=== PATIENT | male | born 1975 ===

== ENCOUNTER 2017-01-25 08:31 | Day surgery (SDC) | payer OTHER ==
--- NOTE | ~2017-01-25 | OP ---
Record Of Operation [facility] [address] [place]. [address] NAME: LA VILLEDA : 73 STATUS : [facility]#: [id number] AGE: 41 ADM/REG DATE : 01/25/17 MR#: [id number] REPORT SERV DATE: 01/28/17 DICTATED BY: TAY RUIZ DATE: 01/25/17 REPORT STATUS : Draft TRANSCRIBED BY: MODL DATE: 01/25/17 DATE OF PROCEDURE: 01/25/2017 SURGEON: Tay Ruiz M.D. PREOPERATIVE DIAGNOSIS: Lymphadenopathy. POSTOPERATIVE DIAGNOSIS: Lymphadenopathy. PROCEDURE: Excision of a left inguinal lymph node. ANESTHESIA: MAC. COMPLICATIONS: None. BLOOD LOSS: Minimal. IV FLUIDS: 700. PIT FURNACE OPERATOR: Marlene Pelayo MD. OPERATIVE DETAILS: The patient was brought to the operative room table, placed in supine position. The left inguinal area was prepped and draped in the usual sterile fashion. There were several palpable left inguinal lymph nodes. The largest was chosen for removal. An incision was made in the inguinal area, dissected down through the skin and subcutaneous tissues. The lymph node was dissected free from its blood supply that was clipped. The lymph node was removed, placed on the table as a specimen. Pathology was called to retrieve the specimen. The subcutaneous tissues were closed with 3-0 Vicryl in an interrupted fashion. Skin was closed with 4-0 Monocryl in an interrupted fashion. Steri-Strips, Telfa, and Tegaderm were applied. The patient tolerated the procedure well, taken to the postanesthesia care in stable condition. DICTATED BY: MD TREVON Abrams/SEBASTIEN Tay Ruiz M.D. / [id number] CC: Tay Ruiz M.D.
[~2017-01-25 08:31] MED LIST: MULTIPLE VIT PO; PRILOSEC40 MG PO; TRAZ100 PO
[2017-01-25 09:36] LABS: HEMATOCRIT 44.3 % (40.0-51.0); HEMOGLOBIN 15.6 g/dL (13.6-17.8)
== END 2017-01-25 16:50 | disposition home or self-care (01) ==
LOC: SDC 08:31
PROVIDERS: Specialist
PROC: 07BJ0ZZ Excision of Left Inguinal Lymphatic, Open Approach (ICD-10-PCS; principal; 2017-01-25 09:45)
DX: D36.0 Benign neoplasm of lymph nodes (principal); G25.81 Restless legs syndrome; K21.9 Gastro-esophageal reflux disease without esophagitis; F17.210 Nicotine dependence, cigarettes, uncomplicated; F10.980 Alcohol use, unspecified with alcohol-induced anxiety disorder; F10.94 Alcohol use, unspecified with alcohol-induced mood disorder; F12.980 Cannabis use, unspecified with anxiety disorder; Z88.5 Allergy status to narcotic agent; Z79.899 Other long term (current) drug therapy; Z87.442 Personal history of urinary calculi; Z86.010 Personal history of colon polyps; Z98.890 Other specified postprocedural states; Z90.49 Acquired absence of other specified parts of digestive tract; Z90.89 Acquired absence of other organs
CPT/HCPCS: 85014; 85018; 87015; 87070; 87075; 87101; 87116; 87205; 88307; 88312; 88333; 88341; 88342; J0690; J2250; J3010